=== PATIENT | female | born 2000 | race Two or more races ===

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

== ENCOUNTER 2021-12-16 03:08 | Emergency (ER) | payer MEDICAID ==
[~2021-12-16] VITALS: Ht 149.9 cm; Wt 72.6 kg
[2021-12-16 05:15] LABS: Basophils # (auto) 0.1 10 ^3/uL (0-0.2); Basophils % (auto) 0.8 % (0.0-2.0); Eosinophils # (auto) 0.1 10 ^3/uL (0-0.8); Eosinophils % (auto) 0.9 % (0.0-7.0); Hematocrit 38.5 % (36.0-46.0); Hemoglobin 13.4 g/dL (12.2-16.2); Lymphocytes # (auto) 2.1 10 ^3/uL (0.4-5.4); Mean Corpuscular Hemoglobin 30.6 pg (28.0-32.0); Mean Corpuscular Hgb Conc. 34.9 g/dL (32.0-36.0); Mean Corpuscular Volume 87.7 fL (80.0-100.0); Monocytes # (auto) 0.5 10 ^3/uL (0-1.3); Monocytes % (auto) 6.1 % (0.0-12.0); Neutrophils # (auto) 5.3 10 ^3/uL (1.6-8.6); Neutrophils % (auto) 66.2 % (37.0-80.0); Nucleated Red Blood Cells % 0.1 %; Red Blood Cells 4.39 10^6/uL (4.0-5.20); Red Cell Distribution Width 13.5 % (11.8-14.3)
[2021-12-16 05:35] LABS: Albumin 3.7 g/dL (3.4-5.0); Calcium 8.9 mg/dL (8.5-10.1); Potassium 3.8 mmol/L (3.5-5.1)
[2021-12-16 05:38] LABS: Bilirubin, Total 0.2 mg/dL (0.2-1.0); Total Protein 7.7 g/dL (6.4-8.2)
[2021-12-16] MEDS ORDERED: ACETAMINOPHEN 325 MG TAB PO ONE (06:15)
[2021-12-16 06:32] LABS: Urine Bacteria FEW /hpf (None Seen); Urine Blood Negative /uL (Negative); Urine Specific Gravity 1.026 (1.001-1.035); Urine WBC 4 /hpf (0 - 5)
[2021-12-16] MEDS ORDERED: CEPH-509 PO (08:41)
[2021-12-16 12:48] VITALS: BP 125/48
== END 2021-12-16 12:50 | disposition home or self-care (01) ==
LOC: ER 03:16
DX: O23.41 Unspecified infection of urinary tract in pregnancy, first trimester (principal); N39.0 Urinary tract infection, site not specified; K29.70 Gastritis, unspecified, without bleeding; Z3A.01 Less than 8 weeks gestation of pregnancy
CPT/HCPCS: 36415; 76801; 76817; 80053; 81001; 83690; 84702; 85025

== ENCOUNTER 2022-06-11 21:27 | Observation (INO) | payer MEDICAID ==
[~2022-06-11] VITALS: Ht 149.9 cm; Wt 81.2 kg
[~2022-06-11 21:27] MED LIST: CEPH-509 PO
[2022-06-11] MEDS ORDERED: PREN-96 PO (23:35)
== END 2022-06-12 00:10 | disposition home or self-care (01) ==
LOC: LDRP 21:27
PROVIDERS: ADMIT Obstetrics & Gynecology; ATTEND Obstetrics & Gynecology
DX: O26.853 Spotting complicating pregnancy, third trimester (principal); Z3A.31 31 weeks gestation of pregnancy
CPT/HCPCS: 59025; 76805; 81002; 94760